=== PATIENT | female | born 1965 | race Hispanic/Latino ===

== ENCOUNTER 2018-01-05 22:10 | Emergency (ER) | payer OTHER ==
[2018-01-05 22:37] LABS: BASOPHILS % (AUTO) 0.4 % (0.0-5.0); EOSINOPHILS % (AUTO) 1.8 % (0.0-8.0); HEMATOCRIT 40.1 % (36-48); LYMPHOCYTES % (AUTO) 39.1 % (21.0-51.0); MEAN CORPUSCULAR HEMOGLOBIN 27.3 pg (27.0-33.0); MEAN CORPUSCULAR HGB CONC 33.5 g/dL (32.0-36.0); MEAN CORPUSCULAR VOLUME 81.5 fL (79-99); NEUTROPHILS % (AUTO) 48.7 % (40.0-77.0); PLATELET COUNT (AUTO) 176 K/uL (130-400); RED BLOOD CELL COUNT(AUTO) 4.92 MIL/uL (4.00-5.50); RED CELL DISTRIBUTION WIDTH 13.6 % (11.0-15.5); WHITE BLOOD COUNT (AUTO) 7.6 K/uL (4.8-10.8)
[2018-01-05 22:47] LABS: CREATININE 0.9 mg/dL (0.5-1.5); POTASSIUM 3.4 mmol/L (3.5-5.1)
[2018-01-05] MEDS ORDERED: ASPIRIN 325 MG TABLET ONE (22:50)
[2018-01-05] MEDS ORDERED: LIDOCAINE HCL 2% VISCOUS 15 ML UDCUP ONE (22:50)
[2018-01-05] MEDS ORDERED: MAG HYDROX/AL HYDROX/SIMETH ES 30 ML SUSP UDCUP ONE (22:50)
[2018-01-05] MEDS ORDERED: NITROGLYCERIN 1GM/1 INCH PACKET TD ONE (22:51)
[2018-01-05] MEDS ORDERED: KETOROLAC TROMETHAMINE 30MG/ML ONE (22:51)
[2018-01-05 22:52] LABS: INR 0.94 (0.85-1.15); PARTIAL THROMBOPLASTIN TIME 25.7 SEC (26.3-35.5); PROTHROMBIN TIME 9.9 SEC (9.6-11.6)
[2018-01-05 22:58] LABS: ALBUMIN 3.7 g/dL (3.5-5.0); BILIRUBIN,TOTAL 0.2 mg/dL (0.2-1.0); TOTAL PROTEIN, SERUM 7.6 g/dL (6.0-8.3)
== END 2018-01-06 00:14 | disposition home or self-care (01) ==
LOC: EDH 22:10
DX: K80.80 Other cholelithiasis without obstruction (principal); I10 Essential (primary) hypertension; Z90.710 Acquired absence of both cervix and uterus
CPT/HCPCS: 36415; 71045; 76705; 80053; 82550; 83874; 84484; 85025; 85610; 85730; 93005; 94761; 96374; 99285; J1885

== ENCOUNTER → 2020-06-27 | Outpatient (CLI) | payer OTHER | END | disposition home or self-care (01) | LOC: OIH 14:31 | PROVIDERS: ATTEND Internal Medicine | DX: S60.222A Contusion of left hand, initial encounter (principal); S60.052A Contusion of left little finger without damage to nail, initial encounter; M19.042 Primary osteoarthritis, left hand; X58.XXXA Exposure to other specified factors, initial encounter; Y92.89 Other specified places as the place of occurrence of the external cause; Y93.89 Activity, other specified; Y99.8 Other external cause status | CPT/HCPCS: 73120 ==

== ENCOUNTER → 2021-03-06 | Outpatient (CLI) | payer OTHER | END | disposition home or self-care (01) | LOC: OIH 12:50 | PROVIDERS: ATTEND Internal Medicine | DX: I10 Essential (primary) hypertension (principal) | CPT/HCPCS: 71046 ==

== ENCOUNTER → 2021-12-29 | Outpatient (CLI) | payer OTHER | END | disposition home or self-care (01) | LOC: RAH 12:40 | PROVIDERS: ATTEND Internal Medicine Cardiovascular Disease | DX: I11.9 Hypertensive heart disease without heart failure (principal); E11.9 Type 2 diabetes mellitus without complications; E66.9 Obesity, unspecified | CPT/HCPCS: 93306 ==

== ENCOUNTER → 2023-10-21 | Outpatient (CLI) | payer OTHER | END | disposition home or self-care (01) | LOC: RAH 13:51 | PROVIDERS: ATTEND Internal Medicine | DX: Z13.6 Encounter for screening for cardiovascular disorders (principal) | CPT/HCPCS: 75571 ==